=== PATIENT | male | born 1980 | race Caucasian/White ===

== ENCOUNTER 2021-06-25 07:58 | Emergency (ER) | payer SELFPAY ==
[~2021-06-25] VITALS: Ht 182.9 cm; Wt 74.2 kg
[2021-06-25] MEDS ORDERED: FAMOTIDINE 20MG/2ML IV (PEPCID) IVP ONE (08:30)
[2021-06-25] MEDS ORDERED: LACTATED RINGERS 1,000 ML IV ONE (08:30)
[2021-06-25] MEDS ORDERED: ONDANSETRON 4 MG/2 ML (SDV) Z0FRAN IVP ONE (08:30)
[2021-06-25] MEDS ORDERED: FAMOTIDINE 20MG/2ML IV (PEPCID) ONE (08:31)
--- NOTE | 2021-06-25 09:05 | ED GI ---
General Chief Complaint: Abdominal/GI Problems Stated Complaint: N/V Nursing Triage Note: Patient reports nausea/vomiting/diarrhea, mild shortness of breath, generalized weakness, chills, and sweats since yesterday. He states he has been unable to keep down any food or fluids since yesterday. Source of Information: Patient Exam Limitations: No Limitations History of Present Illness Date Seen by Provider: Jun 25, 2021 Time Seen by Provider: 08:16 Initial Comments This 41-year-old gentleman presents to the emergency room with complaints of nausea, vomiting, diarrhea, weakness, chills, and sweats since yesterday. He is observed to be mildly tachypneic as well. He denies fever. He has been fully vaccinated for COVID-19. He complains of some burning sensation in the epigastrium. He has not been able to keep down any fluids overnight. Symptoms started yesterday Allergies and Home Medications Allergies Coded Allergies: Penicillins (Verified Allergy, Unknown, 06/25/21) erythromycin base (Verified Allergy, Unknown, 06/25/21) Patient Home Medication List Home Medication List Reviewed: Yes Famotidine (Pepcid) 20 Mg Tablet, 20 MG PO BID Prescribed by: MARCELL DIANA on 06/25/21 1042 Ondansetron (Ondansetron Odt) 4 Mg Tab.rapdis, 4 MG SL Q4H PRN for NAUSEA/VOMITING Prescribed by: MARCELL DIANA on 06/25/21 1042 Review of Systems Review of Systems Constitutional: see HPI EENTM: No Symptoms Reported Respiratory: See HPI Cardiovascular: No Symptoms Reported Gastrointestinal: See HPI Genitourinary: No Symptoms Reported Musculoskeletal: no symptoms reported Skin: no symptoms reported Psychiatric/Neurological: No Symptoms Reported Endocrine: No Symptoms Reported Hematologic/Lymphatic: No Symptoms Reported Past Fczhkly-Kvfkrr-Auxnth Hx Patient Social History Tobacco Use?: No Substance use?: No Alcohol Use?: No Past Medical History Surgeries: Yes Appendectomy Respiratory: No Cardiac: No Neurological: No Genitourinary: No Gastrointestinal: No Musculoskeletal: No Endocrine: No HEENT: No Cancer: No Psychosocial: No Physical Exam Vital Signs Vital Signs - First Documented 06/25/21 08:10 Temp 36.6 Pulse 52 Resp 18 B/P (MAP) 128/69 (88) Pulse Ox 97 O2 Delivery Room Air Capillary Refill : Less Than 3 Seconds Height/Weight/BMI Height: '" Weight: lbs. oz. kg; 22.00 BMI Method: General Appearance: WD/WN, no apparent distress HEENT: PERRL/EOMI, normal ENT inspection, other (MM somewhat dry) Neck: normal inspection Respiratory: lungs clear, normal breath sounds, no respiratory distress Cardiovascular: regular rate, rhythm, no edema, no murmur Gastrointestinal: normal bowel sounds, soft, tenderness (Epigastrium) Extremities: normal inspection, no pedal edema Neurologic/Psychiatric: no motor/sensory deficits, alert, normal mood/affect Skin: normal color, warm/dry Progress/Results/Core Measures Results/Orders Lab Results Laboratory Tests Test 06/25/21 08:45 06/25/21 08:50 Range/Units White Blood Count 11.0 4.3-11.0 10^3/uL Red Blood Count 6.18 H 4.30-5.52 10^6/uL Hemoglobin 18.9 H 13.3-17.7 g/dL Hematocrit 57 H 40-54 % Mean Corpuscular Volume 93 80-99 fL Mean Corpuscular Hemoglobin 31 25-34 pg Mean Corpuscular Hemoglobin Concent 33 32-36 g/dL Red Cell Distribution Width 13.2 10.0-14.5 % Platelet Count 291 130-400 10^3/uL Mean Platelet Volume 10.3 9.0-12.2 fL Immature Granulocyte % (Auto) 0 % Neutrophils (%) (Auto) 85 H 42-75 % Lymphocytes (%) (Auto) 9 L 12-44 % Monocytes (%) (Auto) 6 0-12 % Eosinophils (%) (Auto) 0 0-10 % Basophils (%) (Auto) 0 0-10 % Neutrophils # (Auto) 9.3 H 1.8-7.8 X 10^3 Lymphocytes # (Auto) 1.0 1.0-4.0 X 10^3 Monocytes # (Auto) 0.7 0.0-1.0 X 10^3 Eosinophils # (Auto) 0.0 0.0-0.3 10^3/uL Basophils # (Auto) 0.0 0.0-0.1 10^3/uL Immature Granulocyte # (Auto) 0.0 0.0-0.1 10^3/uL Sodium Level 143 135-145 MMOL/L Potassium Level 4.8 3.6-5.0 MMOL/L Chloride Level 97 L 98-107 MMOL/L Carbon Dioxide Level 29 21-32 MMOL/L Anion Gap 17 H 5-14 MMOL/L Blood Urea Nitrogen 20 H 7-18 MG/DL Creatinine 1.26 0.60-1.30 MG/DL Estimat Glomerular Filtration Rate 64 BUN/Creatinine Ratio 16 Glucose Level 145 H 70-105 MG/DL Calcium Level 11.9 H 8.5-10.1 MG/DL Corrected Calcium 8.5-10.1 MG/DL Magnesium Level 2.7 H 1.6-2.4 MG/DL Total Bilirubin 0.9 0.1-1.0 MG/DL Aspartate Amino Transf (AST/SGOT) 22 5-34 U/L Alanine Aminotransferase (ALT/SGPT) 39 0-55 U/L Alkaline Phosphatase 61 40-136 U/L C-Reactive Protein 0.49 <0.50 MG/DL Total Protein 9.0 H 6.4-8.2 GM/DL Albumin 5.4 H 3.2-4.5 GM/DL Lipase 18 8-78 U/L My Orders Orders - MARCELL CLINE MD Cbc With Automated Diff (06/25/21 08:16) Comprehensive Metabolic Panel (06/25/21 08:16) Crp Fs (06/25/21 08:16) Ed Iv/Invasive Line Start (06/25/21 08:16) Lactated Ringers (Lr 1000 Ml Iv Solution (06/25/21 08:30) Ondansetron Injection (Zofran Injectio (06/25/21 08:30) Lipase (06/25/21 08:27) Magnesium (06/25/21 08:27) Famotidine Injection (Pepcid Injection) (06/25/21 08:30) Famotidine Injection (Pepcid Injection) (06/25/21 08:31) Covid 19 Inhouse Test (06/25/21 08:45) Influenza A And B By Pcr (06/25/21 08:45) Medications Given in ED Current Medications Medications Dose Ordered Sig/Rena Route Start Time Stop Time Status Last Admin Dose Admin Famotidine 20 mg ONCE ONCE IVP 06/25/21 08:30 06/25/21 08:31 DC 06/25/21 08:34 20 MG Lactated Ringer's 1,000 ml @ 0 mls/hr Q0M ONCE IV 06/25/21 08:30 06/25/21 08:31 DC 06/25/21 08:34 1,000 MLS/HR Ondansetron HCl 8 mg ONCE ONCE IVP 06/25/21 08:30 06/25/21 08:31 DC 06/25/21 08:34 8 MG Vital Signs/I&O 06/25/21 08:10 Temp 36.6 Pulse 52 Resp 18 B/P (MAP) 128/69 (88) Pulse Ox 97 O2 Delivery Room Air Blood Pressure Mean: 88 Progress Progress Note : Time: 10:48 Progress Note Patient received Zofran, Pepcid, and IV fluids with improvement in his symptoms. He was able to tolerate drinking water. There were no gross abnormalities in his labs that required further treatment at this time. COVID-19 swab was pending at the time of discharge. See discharge instructions. Departure Impression Primary Impression: Nausea vomiting and diarrhea Additional Impressions: Epigastric pain Person under investigation for COVID-19 Disposition: 01 HOME, SELF-CARE Condition: Improved Departure-Patient Inst. Decision time for Depature: 10:39 Referrals: NO,LOCAL PHYSICIAN (PCP/Family) Primary Care Physician Patient Instructions: Abdominal Pain, Adult ED, Diarrhea in Adolescents and Adults Add. Discharge Instructions: Adhere to a noncarbonated clear liquid diet for the next 24 hours. Then gradually advance your diet with small quantities of bland food as tolerated. Use Zofran (ondansetron) as prescribed for nausea and vomiting. You should also use Pepcid (famotidine) and acid as long as you are having upper abdominal discomfort. Avoid dairy products or fatty or greasy foods until your diarrhea has been resolved for couple of days. Call with questions or concerns. Return to the emergency room if you have worsening symptoms despite treatment. Remain in quarantine until the results of your COVID-19 test is known. All discharge instructions reviewed with patient and/or family. Voiced understanding. Scripts Famotidine (Pepcid) 20 Mg Tablet 20 MG PO BID, #30 TAB Prov: MARCELL CLINE MD 06/25/21 Ondansetron (Ondansetron Odt) 4 Mg Tab.rapdis 4 MG SL Q4H PRN for NAUSEA/VOMITING, #10 TAB Prov: MARCELL CLINE MD 06/25/21 MARCELL CLINE MD Jun 25, 2021 09:05
[2021-06-25 09:19] LABS: HEMATOCRIT 57 % (40-54); HEMOGLOBIN 18.9 g/dL (13.3-17.7); MEAN CORPUSCULAR HEMOGLOBIN 31 pg (25-34)
[2021-06-25 09:20] LABS: MEAN CORPUSCULAR HGB CONC 33 g/dL (32-36); MEAN CORPUSCULAR VOLUME 93 fL (80-99)
[2021-06-25 09:21] LABS: BASOPHILS % (AUTO) 0 % (0-10); EOSINOPHILS % (AUTO) 0 % (0-10); LYMPHOCYTES % (AUTO) 9 % (12-44); MEAN PLATELET VOLUME 10.3 fL (9.0-12.2); MONOCYTES # (AUTO) 0.7 X 10^3 (0.0-1.0); MONOCYTES % (AUTO) 6 % (0-12); NEUTROPHILS # (AUTO) 9.3 X 10^3 (1.8-7.8); NEUTROPHILS % (AUTO) 85 % (42-75); PLATELET COUNT 291 10^3/uL (130-400)
[2021-06-25 09:36] LABS: CHLORIDE 97 MMOL/L (98-107); POTASSIUM 4.8 MMOL/L (3.6-5.0); SODIUM 143 MMOL/L (135-145)
[2021-06-25 09:37] LABS: ALANINE AMINOTRANSFERASE 39 U/L (0-55); ALBUMIN 5.4 GM/DL (3.2-4.5); ALKALINE PHOSPHATASE 61 U/L (40-136); BILIRUBIN,TOTAL 0.9 MG/DL (0.1-1.0); BUN/CREATININE RATIO 16; CALCIUM 11.9 MG/DL (8.5-10.1); CARBON DIOXIDE 29 MMOL/L (21-32); CREATININE SERUM 1.26 MG/DL (0.60-1.30); GFR ESTIMATED 64; GLUCOSE 145 MG/DL (70-105); MAGNESIUM 2.7 MG/DL (1.6-2.4)
[2021-06-25 09:38] LABS: LIPASE 18 U/L (8-78)
[2021-06-25] MEDS ORDERED: FAMO-119 PO (10:42)
[2021-06-25] MEDS ORDERED: ONDA4TAB11 SL (10:42)
[2021-06-25 10:48] VITALS: BP 113/68
== END 2021-06-25 10:48 | disposition home or self-care (01) ==
LOC: ER FS 08:01
DX: R11.2 Nausea with vomiting, unspecified (principal); R19.7 Diarrhea, unspecified; R10.13 Epigastric pain; Z20.822 Contact with and (suspected) exposure to COVID-19
CPT/HCPCS: 36415; 80053; 83690; 83735; 85025; 86141; 87636

== ENCOUNTER 2023-02-22 08:29 | Emergency (ER) | payer SELFPAY ==
[~2023-02-22] VITALS: Ht 182.9 cm; Wt 64.0 kg
[~2023-02-22 08:29] MED LIST: FAMO-119 PO; ONDA4TAB11 SL
--- NOTE | 2023-02-22 09:02 | Diagnostic Imaging Report ---
INDICATION: Cough. PA and lateral views were obtained. FINDINGS: The heart size is normal. No pleural effusion or pneumothorax. Mediastinum unremarkable. There is patchy right upper lobe infiltrate. IMPRESSION: Patchy right upper lobe infiltrate possibly reflecting early pneumonia, otherwise unremarkable. Dictated by: Dictated on workstation # [id number]
--- NOTE | 2023-02-22 09:05 | ED Respiratory ---
General Chief Complaint: Cough/Cold/Flu Symptoms Stated Complaint: COUGH; SOB Nursing Triage Note: PT AMBULATE TO ROOM FS02 WITHOUT DIFFICULTY WITH C/O COUGH AND SOB X2 WEEKS. PT REPORTS UPPER CHEST PAIN DUE TO COUGHING. PT REPORTS BEING SEEN BY PCP FRIDAY AND FRIDAY THIS WEEK AND GIVEN A ZPAK. Source: patient, long term records Exam Limitations: no limitations History of Present Illness Date Seen by Provider: February 22, 2023 Time Seen by Provider: 08:40 Initial Comments 42-year-old non-smoking male patient complaining of cough for 2 weeks. Patient states he had intermittent episodes of productive cough with yellow and brownish sputum and shortness of breath with exertion and chest soreness during episode of cough. Patient complaining of posttussive vomiting and headache. Patient states he had fever of 101 two days ago. Patient denies sore throat, earache, diarrhea and constipation, urinary symptoms, sick contact. Patient was seen by primary care physician 4 days and again 3 days ago and treated with Z-Berny and albuterol inhaler without improvement of his condition. Patient had negative COVID test at primary care physician office. Patient presented to ER because he was not able to sleep for several nights and feeling not better after finishing course of Z-Berny. Patient had normal vital signs at arrival to ER. Allergies and Home Medications Allergies Coded Allergies: erythromycin base (Verified Allergy, Unknown, 06/25/21) Patient Home Medication List Home Medication List Reviewed: Yes Amoxicillin (Amoxicillin) 500 Mg Capsule, 500 MG PO TID Prescribed by: Zehra buitrago on 02/22/23915 Benzonatate (Tessalon Perles) 100 Mg Capsule, 100 MG PO TID PRN for cough Prescribed by: Zehra buitrago on 02/22/23 09 Famotidine (Pepcid) 20 Mg Tablet, 20 MG PO BID Prescribed by: MARCELL DIANA on 06/25/21 104 Ondansetron (Ondansetron Odt) 4 Mg Tab.rapdis, 4 MG SL Q4H PRN for NAUSEA/VOMITING Prescribed by: MARCELL DIANA on 06/25/21 1042 Prednisone (Prednisone) 20 Mg Tab, 40 MG PO DAILY Prescribed by: Zehra buitrago on 02/22/23 0916 Review of Systems Review of Systems Constitutional: see HPI EENTM: see HPI Respiratory: see HPI Cardiovascular: see HPI Gastrointestinal: no symptoms reported Genitourinary: no symptoms reported Musculoskeletal: no symptoms reported Skin: no symptoms reported Hematologic/Lymphatic: No Symptoms Reported Immunological/Allergic: no symptoms reported All Other Systems Reviewed Negative Unless Noted: Yes Past Ltokdwg-Artyjq-Hwcxry Hx Patient Social History Tobacco Use?: No Smoking Status: Never a Smoker Smokeless Tobacco Frequency: Never a User Use of E-Cig and/or Vaping dev: No Use of E-Cig and/or Vaping [place]: Never a User Substance use?: No Alcohol Use?: No Pt feels they are or have been: No Immunizations Up To Date First/Initial COVID19 Vaccinat: March 2021 Second COVID19 Vaccination [place]: April 2021 Past Medical History Surgeries: Yes Appendectomy Respiratory: No Cardiac: No Neurological: No Genitourinary: No Gastrointestinal: No Musculoskeletal: No Endocrine: No HEENT: No Cancer: No Psychosocial: No Physical Exam Vital Signs - First Documented Capillary Refill : Less Than 3 Seconds Height: '" Weight: lbs. oz. kg; 19.00 BMI Method: General Appearance: WD/WN, no apparent distress Eyes: Right Eye Normal Inspection, Right Eye PERRL, Right Eye EOMI, Right Eye Abnormal EOM; Bilateral Eye Normal Inspection, Bilateral Eye PERRL, Bilateral Eye EOMI HEENT: PERRL/EOMI, normal ENT inspection, TMs normal, pharynx normal Neck: non-tender, full range of motion, supple, normal inspection, carotid bruit Respiratory: chest non-tender, lungs clear, normal breath sounds, no respiratory distress, no accessory muscle use, respiratory distress Cardiovascular: normal peripheral pulses, regular rate, rhythm, no edema, no gallop, no JVD, no murmur Gastrointestinal: normal bowel sounds, non tender, soft, no organomegaly, no pulsatile mass Genital/Rectal: normal genital exam; No normal genital exam Extremities: normal range of motion, non-tender, normal inspection, no pedal edema, no calf tenderness, normal capillary refill, pelvis stable Neurologic/Psychiatric: quality assurance monitor II-XII nml as tested, no motor/sensory deficits, alert, normal mood/affect, oriented x 3 Skin: normal color, warm/dry, cyanosis, cool, diaphoresis, damp Lymphatic: no adenopathy, axilla node tender (R), axilla node tender (L), inguinal node tender (R), inguinal node tender (L) Progress/Results/Core Measures Suspected Sepsis SIRS Temperature: Pulse: 73 Respiratory Rate: 16 Blood Pressure 105 /70 Mean: 82 Results/Orders My Orders Orders - ZEHRA BUITRAGO MD Chest Pa/Lat (2 View) (02/22/23 08:46) Ceftriaxone Iv/Im (Rocephin Iv/Im) (02/22/23 09:15) Lidocaine 1% Inj 20 Ml (Xylocaine 1% Inj (02/22/23 09:15) Vital Signs/I&O 02/22/23 02/22/23 08:38 08:38 Temp 36.9 Pulse 73 Resp 16 B/P (MAP) 105/70 (82) O2 Delivery Room Air Room Air Capillary Refill : Less Than 3 Seconds Blood Pressure Mean: 82 Progress Note : Progress Note Patient with complaining of productive cough and fever and headache for 2 weeks that did not get better with Z-Berny given by primary care physician. Patient had O2 sat of 99% on room air without fever at arrival to ER. Patient had unremarkable physical exam. 2 view chest x-ray showed a small infiltrate of right upper lobe. Patient had a stable vital signs and exam and IV line and lab was not requested. Patient treated with Rocephin in ER and prescription for amoxicillin, Tessalon, prednisone was given.(Patient does not have insurance). Patient advised to continue home albuterol given by primary care physician and increase fluid intake. Patient advised that cough last for at least 2 weeks after treatment. Reason for return to ER and follow-up with primary care physician was and all questions was addressed. Diagnostic Imaging Diagonstic Imaging: Xray Plain Films/CT/US/NM/MRI: chest Comments 2 view chest x-ray interpreted by by me and showed small right upper lobe infiltrate. Chest x-ray interpreted by radiologist and reviewed by me and showed: [facility] [place], [place] NAME: DANIS FREGOSO MED REC#: [id number] PT STATUS: REG ER : 1980 PHYSICIAN: ZEHRA BUITRAGO MD ADMIT DATE: 02/22/23/ER FS Draft Date of Exam:02/22/23 CHEST PA/LAT (2 VIEW) INDICATION: Cough. PA and lateral views were obtained. FINDINGS: The heart size is normal. No pleural effusion or pneumothorax. Mediastinum unremarkable. There is patchy right upper lobe infiltrate. IMPRESSION: Patchy right upper lobe infiltrate possibly reflecting early pneumonia, otherwise unremarkable. Dictated on workstation # [id number] Dict: 02/22/23 0900 Trans: 02/22/23901 CVB [id number] Interpreted by: YOLANDA GRACIA MD Electronically signed by: Departure Impression Primary Impression: Right upper lobe pneumonia Qualified Codes: J18.9 - Pneumonia, unspecified organism Additional Impression: Cough Qualified Codes: R05.1 - Acute cough Disposition: 01 HOME, SELF-CARE Condition: Stable Departure-Patient Inst. Decision time for Depature: 09:16 Referrals: [facility] (PCP/Family) Primary Care Physician Patient Instructions: Cough, Adult ED, Pneumonia, Adult ED Add. Discharge Instructions: Continue home inhalers Drink plenty of liquids Follow-up with your primary care physician in 5 to 7 days or return to ER if not getting better All discharge instructions reviewed with patient and/or family. Voiced understanding. Scripts Benzonatate (TESSALON PERLES) 100 Mg Capsule 100 MG PO TID PRN for cough, #30 CAP Prov: ZEHRA BUITRAGO MD 02/22/23 Prednisone (Prednisone) 20 Mg Tab 40 MG PO DAILY for 5 Days, #10 TAB 0 Refills Prov: ZEHRA BUITRAGO MD 02/22/23 Amoxicillin (Amoxicillin) 500 Mg Capsule 500 MG PO TID for pneumonia, #30 CAP 0 Refills Prov: ZEHRA BUITRAGO MD 02/22/23 ZEHRA BUITRAGO MD February 22, 2023 09:05
[2023-02-22] MEDS ORDERED: cefTRIAXone 1,000 MG VIAL (for IV or IM) IM ONE (09:15)
[2023-02-22] MEDS ORDERED: LIDOCAINE 1% INJ 20 ML VIAL INJ ONE (09:15)
[2023-02-22] MEDS ORDERED: BENZ100C18 PO (09:16)
[2023-02-22] MEDS ORDERED: PRD20T PO (09:16)
[2023-02-22] MEDS ORDERED: AMOX500C2 PO (09:16)
[2023-02-22 09:22] VITALS: BP 134/75
== END 2023-02-22 09:22 | disposition home or self-care (01) ==
LOC: EDUNIT# 08:29 → ER FS 08:31
DX: J18.9 Pneumonia, unspecified organism (principal); Z88.1 Allergy status to other antibiotic agents
CPT/HCPCS: 71046